=== PATIENT | male | born 1970 | race Caucasian/White ===

== ENCOUNTER 2017-05-13 20:38 | Emergency (ER) | payer OTHER ==
[2017-05-13 20:50] VITALS: BP 153/86
--- NOTE | 2017-05-13 21:07 | EDM.PDOC ---
ED HPI GENERAL MEDICAL PROBLEM - General Chief Complaint: ENT Problem Stated Complaint: COLD Time Seen by Provider: 05/13/17 21:00 Source of Information: Reports: Patient History Limitations: Reports: No Limitations - History of Present Illness INITIAL COMMENTS - FREE TEXT/NARRATIVE: HISTORY AND PHYSICAL: History of present illness: [Patient comes to the emergency room complaining of head congestion and pressure. 8 days ago he woke up feeling dizzy and with the sensation that the room was spinning around him. Since then he's been taking an antihistamine and decongestant daily. He is slowly had improvement in his symptoms he is concerned that he may have an infection that could be causing his problems. He has not had a runny nose, fever or chills. No cough or chest congestion. No upset stomach nausea vomiting. No abdominal pain and difficulty urinating or change in stools. He continues to feel a little off balance with walking and when he changes from a sitting to standing position. Denies chest pain, shortness of breath and difficulty breathing. No fainting or lightheadedness at rest.] Review of systems: As per history of present illness and below otherwise all systems reviewed and negative. Past medical history: As per history of present illness and as reviewed below otherwise noncontributory. Surgical history: As per history of present illness and as reviewed below otherwise noncontributory. Social history: No reported history of drug or alcohol abuse. Family history: As per history of present illness and as reviewed below otherwise noncontributory. Physical exam: HEENT: Atraumatic, normocephalic. Nares are patent no drainage. Face is nontender with palpation. Right TM is pearly howell without effusion. Left TM is brightly erythematous and injected in the superior aspect. And without effusions. Neck is supple without lymphadenopathy. Lungs: Clear to auscultation, breath sounds equal bilaterally,. No wheezing crackles or rales.. Heart: S1S2, regular, negative for clicks, rubs, or JVD. Abdomen: Obese soft nontender. Pelvis: Stable nontender. Genitourinary: Deferred. Rectal: Deferred. Extremities: Atraumatic and without deformity. Neuro: Awake, alert, oriented. Motor and sensory unremarkable throughout. Exam nonfocal. Impression: [otitis media] Plan: [Patient is given an Rx for amoxicillin 875 mg twice a day for 7 days. 0 refills. Recommend continue antihistamine and decongestants until feelings have improved. Establish care with a local PCP for follow-up. He is in agreement with today's plan all of his questions are answered and concerns are addressed.] Definitive disposition and diagnosis as appropriate pending reevaluation and review of above. - Related Data Allergies Allergy/AdvReac Type Severity Reaction Status Date / Time No Known Allergies Allergy Verified 03/18/14 17:38 Home Meds: Home Meds atorvaSTATin [Lipitor] 20 mg PO BEDTIME 03/18/14 [History] RABEprazole Sodium [Aciphex Sprinkle] 10 mg PO DAILY 05/13/17 [History] Past Medical History Cardiovascular History: Reports: High Cholesterol Respiratory History: Reports: Sleep Apnea, Other (See Below) Other Respiratory History: uses nasal c pap at night Gastrointestinal History: Reports: GERD - Infectious Disease History Infectious Disease History: Reports: Chicken Pox Social & Family History - Family History Cardiac: Reports: [place] Endocrine/Metabolic: Reports: Diabetes, type II - Tobacco Use Years of Tobacco use: 25 - Caffeine Use Caffeine Use: Reports: None - Alcohol Use Days Per Week of Alcohol Use: 0 - Recreational Drug Use Recreational Drug Use: No ED ROS ENT - Review of Systems Review Of Systems: ROS reveals no pertinent complaints other than HPI. ED EXAM, ENT - Physical Exam Exam: See Below Course - Vital Signs Last Recorded V/S: Last Vital Signs Temp 97.5 F 05/13/17 20:46 Pulse 90 05/13/17 20:46 Resp 18 05/13/17 20:46 BP 153/86 H 05/13/17 20:46 Pulse Ox 96 05/13/17 20:46 Departure - Departure Time of Disposition: 21:15 Disposition: Home, Self-Care 01 Condition: Good Clinical Impression: Otitis media - Discharge Information Instructions: Otitis Media, Adult, [id number] Referrals: PCP,None [Primary Care Provider] - Forms: ED Department Discharge Additional Instructions: The following information is given to patients seen in the emergency department who are being discharged to home. This information is to outline your options for follow-up care. We provide all patients seen in our emergency department with a follow-up referral. The need for follow-up, as well as the timing and circumstances, are variable depending upon the specifics of your emergency department visit. If you don't have a primary care physician on staff, we will provide you with a referral. We always advise you to contact your personal physician following an emergency department visit to inform them of the circumstance of the visit and for follow-up with them and/or the need for any referrals to a consulting specialist. The emergency department will also refer you to a specialist when appropriate. This referral assures that you have the opportunity for follow-up care with a specialist. All of these measure are taken in an effort to provide you with optimal care, which includes your follow-up. Under all circumstances we always encourage you to contact your private physician who remains a resource for coordinating your care. When calling for follow-up care, please make the office aware that this follow-up is from your recent emergency room visit. If for any reason you are refused follow-up, please contact the [facility] emergency department at and asked to speak to the emergency department charge nurse. [facility] [address] [place] [id number] Follow-up with your primary care provider at the clinic listed above in 48-72 hours. Antibiotics as prescribed. Continue decongestant and antihistamine as needed. Return to ER as needed as discussed.
== END 2017-05-13 21:13 | disposition home or self-care (01) ==
LOC: MW.ED 20:38
DX: H66.90 Otitis media, unspecified, unspecified ear (principal); G47.30 Sleep apnea, unspecified; K21.9 Gastro-esophageal reflux disease without esophagitis; Z79.899 Other long term (current) drug therapy
CPT/HCPCS: 99282; 99283